=== PATIENT | male | born 1975 | race Caucasian/White ===

== ENCOUNTER 2017-01-20 17:22 | Emergency (ER) | payer OTHER ==
[2017-01-20 17:46] VITALS: BP 122/81; PULSE 64; RESP 16; TEMP 97.9
[2017-01-20] MEDS ORDERED: IBUPROFEN 600 MG TAB PO STA (17:56)
--- NOTE | 2017-01-20 18:21 | XR ---
EXAMINATION TYPE: XR knee complete LT DATE OF EXAM: 01/20/2017 COMPARISON: NONE HISTORY: Knee pain TECHNIQUE: 3 views FINDINGS: I see no fracture nor dislocation. Joint spaces are normal. There is no sign of any joint e ffusion. IMPRESSION: Negative left knee exam
[2017-01-20] MEDS ORDERED: methylPREDNISolone SOD SUCCI 125 MG/2 ML VIAL IM ONE (18:30)
--- NOTE | 2017-01-20 18:34 | ED ---
Lower Extremity Injury HPI - General Chief Complaint: Extremity Injury, Lower Stated Complaint: Left knee pain Time Seen by Provider: 01/20/17 17:47 Source: patient Mode of arrival: ambulatory Limitations: no limitations - History of Present Illness Initial Comments: 41-year-old male patient presents to emergency department today for evaluation of left knee pain. Patient states that he walked to the store in the afternoon and when he got home his knee started to hurt. Patient states that it hurts to bend his knee or straighten out his leg. He states the pain is mostly in his anterior knee, right below the patella. He states it is tender. Patient denies taking any medications for pain control. Denies any injury or fall causing the knee pain. He denies any numbness or tingling to his leg or foot. Patient denies any previous injury or issues with the knee. He denies any rash , fever, chills, dizziness, weakness, chest pain, shortness of breath, headache , abdominal pain, nausea, vomiting or difficulties with bowel movements or urination. - Related Data Previous Rx's Medication Instructions Recorded Ibuprofen [Motrin] 600 mg PO Q6HR PRN #20 tab 01/20/17 Allergies Allergy/AdvReac Type Severity Reaction Status Date / Time No Known Allergies Allergy Verified 01/20/17 17:46 Review of Systems ROS Statement: Those systems with pertinent positive or pertinent negative responses have been documented in the HPI. ROS Other: All systems not noted in ROS Statement are negative. Past Medical History Past Medical History: No Reported History History of Any Multi-Drug Resistant Organisms: None Reported Past Surgical History: Appendectomy Past Psychological History: No Psychological Hx Reported Smoking Status: Current every day smoker Past Alcohol Use History: Occasional Past Drug Use History: None Reported General Exam Limitations: no limitations General appearance: alert, in no apparent distress Head exam: Present: atraumatic, normocephalic, normal inspection Respiratory exam: Present: normal lung sounds bilaterally. Absent: respiratory distress, wheezes, rales, rhonchi, stridor Cardiovascular Exam: Present: regular rate, normal rhythm, normal heart sounds. Absent: systolic murmur, diastolic murmur, rubs, gallop, clicks GI/Abdominal exam: Present: soft, normal bowel sounds. Absent: distended, tenderness, guarding, rebound, rigid Extremities exam: Present: normal inspection, full ROM (Pain with full flexion and full extension of the knee.), tenderness (Tender over the area right below the patella on the left knee. ), normal capillary refill, other (The joint is stable. ). Absent: pedal edema, joint swelling, calf tenderness Back exam: Present: normal inspection Neurological exam: Present: alert, oriented X3, CN II-XII intact Psychiatric exam: Present: normal affect, normal mood Skin exam: Present: warm, dry, intact, normal color. Absent: rash Course Vital Signs 01/20/17 17:44 Temperature 97.9 F Pulse Rate 64 Respiratory 16 Rate Blood Pressure 122/81 O2 Sat by Pulse 97 Oximetry Disposition Clinical Impression: Left knee pain Disposition: HOME SELF-CARE Condition: Good Instructions: Knee Pain (ED) Additional Instructions: Rest, ice, and elevate the knee. Use Jed wrap for comfort. Take ibuprofen for pain control. Follow up with primary care physician in one to 2 days for recheck. Return immediately for any new, worsening, or concerning symptoms. Prescriptions: Ibuprofen [Motrin] 600 mg PO Q6HR PRN #20 tab PRN Reason: Pain Referrals: None,Stated [Primary Care Provider] - 1-2 days Time of Disposition: 18:34
== END 2017-01-20 18:43 | disposition home or self-care (01) ==
LOC: EC 17:22
DX: M25.562 Pain in left knee (principal); F17.200 Nicotine dependence, unspecified, uncomplicated
CPT/HCPCS: 73562; 99283; 96372; J2930

== ENCOUNTER 2023-07-17 19:29 | Emergency (ER) | payer OTHER ==
[2023-07-17 19:49] VITALS: TEMP 98.5
--- NOTE | 2023-07-17 19:51 | ED ---
Extremity Problem HPI - General Chief complaint: Extremity Problem,Nontraumatic Stated complaint: Left knee pain Time Seen by Provider: 07/17/23 19:49 Source: patient, RN notes reviewed Mode of arrival: ambulatory Limitations: no limitations - History of Present Illness Initial comments: Patient is a 47-year-old male presented to ER with chief complaint of left knee pain. Patient states when he got out of bed this morning his left knee gave out on him and he landed on both of his knees. Patient denies any head injury, loss of consciousness, other injuries. Patient states he has broken this knee in the past. States all day he has been pain and when his knees pushed on the knee while they were playing he felt extreme pain which brought him to the ER. Patient denies any paresthesias or current weakness. Patient states he has been able to walk but it is painful. Patient has not taken anything for the pain at this time. - Related Data Previous Rx's Medication Instructions Recorded Ibuprofen [Motrin] 600 mg PO Q6HR PRN #20 tab 01/20/17 Allergies Allergy/AdvReac Type Severity Reaction Status Date / Time No Known Allergies Allergy Verified 07/17/23 19:41 Review of Systems ROS Statement: Those systems with pertinent positive or pertinent negative responses have been documented in the HPI. ROS Other: All systems not noted in ROS Statement are negative. Past Medical History Past Medical History: No Reported History History of Any Multi-Drug Resistant Organisms: None Reported Past Surgical History: Appendectomy Past Psychological History: No Psychological Hx Reported Smoking Status: Current every day smoker Past Alcohol Use History: Occasional Past Drug Use History: IV Drug Use General Exam Limitations: no limitations General appearance: alert, in no apparent distress Respiratory exam: Present: normal lung sounds bilaterally. Absent: respiratory distress, wheezes, rales, rhonchi, stridor Cardiovascular Exam: Present: regular rate, normal rhythm, normal heart sounds. Absent: systolic murmur, diastolic murmur, rubs, gallop, clicks Extremities exam: Present: tenderness (Medial joint line of left knee. 2+ left dorsalis pedis pulse. Sensation intact. Patient has full active range of motion with pain. There is mild edema to medial joint.) Neurological exam: Present: alert, oriented X3, CN II-XII intact Psychiatric exam: Present: normal affect, normal mood Skin exam: Present: warm, dry, intact, normal color. Absent: rash Course Vital Signs 07/17/23 19:40 Temperature 98.5 F Pulse Rate 78 Respiratory 18 Rate Blood Pressure 121/76 O2 Sat by Pulse 100 Oximetry Medical Decision Making - Medical Decision Making Was pt. sent in by a medical professional or institution (, [facility]ER, [employer]TER, urgent care, hospital, or snf...) When possible be specific @ -No Did you speak to anyone other than the patient for history (EMS, parent, family, police, friend...)? What history was obtained from this source @ -No Did you review nursing and triage notes (agree or disagree)? Why? @ -I reviewed and agree with nursing and triage notes Were old charts reviewed (outside hosp., previous admission, EMS record, old EKG, old radiological studies, urgent care reports/EKG's, snf records)? Report findings @ -No old charts were reviewed Differential Diagnosis (chest pain, altered mental status, abdominal pain women, abdominal pain men, vaginal bleeding, weakness, fever, dyspnea, syncope, headache, dizziness, GI bleed, back pain, seizure, CVA, palpatations, mental health, musculoskeletal)? @ -Differential Musculoskeletal: Muscular strain, contusion, ligament sprain, fracture, arthritis, septic arthritis, bursitis, cellulitis, muscle spasm, nerve compression, DVT, arterial occlusion, herpes zoster, electrolyte abnormality, tumor.... This is not meant to be in all inclusive list EKG interpreted by me (3pts min.). @ -None X-rays interpreted by me (1pt min.). @ -Left knee x-rays interpreted by me showed no acute process. CT interpreted by me (1pt min.). @ -None done U/S interpreted by me (1pt. min.). @ -None done What testing was considered but not performed or refused? (CT, X-rays, U/S, labs)? Why? @ -None What meds were considered but not given or refused? Why? @ -None Did you discuss the management of the patient with other professionals (professionals i.e. PETER Sanders, SHELL TR[employer] TOOL SETTER, lab, RT, psych nurse, high school social studies tutor, auto self service station attendant, teacher, first aid officer, director of casework)? Give summary @ -No Was smoking cessation discussed for >3mins.? @ -No Was critical care preformed (if so, how long)? @ -No Were there social determinants of health that impacted care today? How? (Homelessness, low income, unemployed, alcoholism, drug addiction, transportation, low edu. Level, literacy, decrease access to med. care, retirement, rehab)? @ -No Was there de-escalation of care discussed even if they declined (Discuss DNR or withdrawal of care, Hospice)? DNR status @ -No What co-morbidities impacted this encounter? (DM, HTN, Smoking, COPD, CAD, Cancer, CVA, ARF, Chemo, Hep., AIDS, mental health diagnosis, sleep apnea, morbid obesity)? @ -None Was patient admitted / discharged? Hospital course, mention meds given and route, prescriptions, significant lab abnormalities, going to OR and other pertinent info. @ -Discharge. Patient is a 47 year old male presenting to the ER with a chief complaint of left knee pain. History and physical exam were completed. Vitals stable. Left lower extremity neurovascularly intact. Full active ROM with pain. X-rays of left knee negative for acute fracture or dislocations. Patient received PO tylenol with mild improvement. Jed wrap placed. Imaging results discussed with patient. I advised him to follow-up with orthopedics for further evaluation. Advised OTC tylenol and motrin for pain control. Return parameters were discussed. Patient will be discharged in stable condition with follow-up to orthopedics. Patient expresed udnerstanding and agreement with care plan. Undiagnosed new problem with uncertain prognosis? @ -No Drug Therapy requiring intensive monitoring for toxicity (Heparin, Nitro, Insulin, Cardizem)? @ -No Were any procedures done? @ -No Diagnosis/symptom? @ -Left knee pain Acute, or Chronic, or Acute on Chronic? @ -Acute Uncomplicated (without systemic symptoms) or Complicated (systemic symptoms)? @ -Uncomplicated Side effects of treatment? @ -No Exacerbation, Progression, or Severe Exacerbation? @ -No Poses a threat to life or bodily function? How? (Chest pain, [place], [place], pneumonia, PE, COPD, DKA, ARF, appy, cholecystitis, CVA, Diverticulitis, Homicidal, Suicidal, threat to staff... and all critical care pts) @ -No - Radiology Data Radiology results: report reviewed, image reviewed Disposition Clinical Impression: Left knee pain Disposition: HOME SELF-CARE Condition: Stable Instructions (If sedation given, give patient instructions): Knee Pain (ED) Additional Instructions: Please follow-up with orthopedics. Return to the ER for any new or worsening symptoms. Is patient prescribed a controlled substance at d/c from ED?: No Referrals: None,Stated [Primary Care Provider] - 1-2 days Solomon Quintero DO [Doctor of Osteopathic Medicine] - 1-2 days Time of Disposition: 20:45
[2023-07-17] MEDS: ACETAMINOPHEN TAB 325 MG TAB PO STA (19:54)
--- NOTE | 2023-07-17 20:24 | XR ---
EXAMINATION TYPE: XR knee complete LT DATE OF EXAM: 07/17/2023 8:13 PM CLINICAL INDICATION:Male, 47 years old with history of pain; no known injury COMPARISON: 01/20/2017 TECHNIQUE: XR knee complete LT; examined in Frontal, lateral and oblique projections. FINDINGS: Osseous mineralization appears appropriate. No evidence of destructive lesion or aggressive periostit is. No acute fracture or dislocation. Joint spaces appear maintained. Unremarkable soft tissues witho ut significant joint effusion or radiopaque foreign body seen. The overall appearance is similar to t he prior study. IMPRESSION: No evidence of an acute osseous abnormality.
[2023-07-17 21:12] VITALS: BP 99/64; PULSE 63; RESP 16
== END 2023-07-17 20:56 | disposition home or self-care (01) ==
LOC: EC 19:29
DX: M25.562 Pain in left knee (principal); F17.200 Nicotine dependence, unspecified, uncomplicated
CPT/HCPCS: 99283